=== PATIENT | female | born 1930 | race Caucasian/White ===

== ENCOUNTER 2020-10-01 14:51 | Inpatient (IN) | payer MEDICARE, BC ==
[~2020-10-01] VITALS: Ht 167.6 cm; Wt 71.7 kg
[~2020-10-01 14:51] MED LIST: CALC500T78 PO; CHOL20004 PO; DILT-32 PO; FISH1CAP16 PO; LOSA100T3 PO; LOVA20TA2 PO; TRIA1CAP2 PO; ZOLP5TAB2 PO
[2020-10-01] MEDS ORDERED: ACET-2154 PO (17:37)
[2020-10-01] MEDS ORDERED: BISA10SU12 RC (17:43)
[2020-10-01] MEDS ORDERED: ATOR40TA PO (17:43)
[2020-10-01] MEDS ORDERED: ENOX40DI SQ (17:43)
[2020-10-01] MEDS ORDERED: ZOLP5TAB2 PO (17:43)
[2020-10-01] MEDS ORDERED: MAGN400O6 PO (17:43)
[2020-10-01] MEDS ORDERED: VITA-287 PO (17:43)
[2020-10-01] MEDS ORDERED: AMLO5TAB4 PO (17:43)
[2020-10-01] MEDS ORDERED: MAG30ORA PO (17:43)
--- NOTE | 2020-10-01 19:45 | NUR ---
Patient arrived in the room 321 via gurney bed assisted by 2 EMT,s through direct admission from [facility] at 1905 with admitting DX PUBIC FRACTURE, (displaced L inferior Pubic Ramus), (R Acetabular mildly displaced ). no surgery, patient plan of care Acute rehab. Patient AAO X 4 no acute distress at room air saturating 93% VS B/P 154/75, p 78, R19, T98.3 Pain 0, bowel and bladder incontinent, belonging list done and placed in chart skin assessment done, skin intact. Admission order completed med reconcile is done by Tamia Burnett NP, and DR. Bower is aware of admission. Oriented patient to the room, safety measures and precautions in place. Call light with in reach, will continue monitor patient, All needs anticipated , call light with in reach.
[2020-10-01 20:00] VITALS: BP 154/75
[2020-10-01] MEDS ORDERED: BISACODYL 10 MG SUPP.RECT RC PRN (20:30)
[2020-10-01] MEDS ORDERED: MAG HYDROX/AL HYDROX/SIMETH 30 ML LIQUID UDC PO PRN (20:30)
[2020-10-01] MEDS ORDERED: MAGNESIUM HYDROXIDE 30 ML LIQUID UDC PO PRN (20:30)
[2020-10-01] MEDS ORDERED: ZOLPIDEM 5 MG TABLET PO PRN (20:30)
[2020-10-01] MEDS: ENOXAPARIN SODIUM 40 MG/0.4 ML DISP.SYRIN SQ SCH (22:02)
[2020-10-01] MEDS: ATORVASTATIN 40 MG TABLET PO SCH (22:03)
--- NOTE | 2020-10-01 22:10 | NUR ---
Patient AO X4 no acute distress,regular diet, offer choice of snack and fluids kept clean and dry all due medication administered no adverse reaction noted. Will continue monitoring patient. Safety precautions observed all time. call light with in reach.
[2020-10-02 04:00] VITALS: BP 152/74
--- NOTE | 2020-10-02 04:58 | NUR ---
Patient slept through out night with no c/o pain or acute distress. All needs anticipated call light with in reach. complied with all care,Will endorse accordingly to AM shift.
[2020-10-02 08:00] VITALS: BP 151/62
[2020-10-02] MEDS: AMLODIPINE 5 MG TABLET PO SCH (08:07)
[2020-10-02] MEDS: VITAMIN B COMPLEX 1 TABLET PO SCH (08:07)
[2020-10-02] MEDS: ACETAMINOPHEN 325 MG TABLET PO PRN ×2 (14:40→21:23)
[2020-10-02 16:23] VITALS: BP 149/68
[2020-10-02] MEDS: ATORVASTATIN 40 MG TABLET PO SCH (20:09)
[2020-10-02] MEDS: ENOXAPARIN SODIUM 40 MG/0.4 ML DISP.SYRIN SQ SCH (20:30)
[2020-10-02 20:41] VITALS: BP 128/56
[2020-10-03 05:32] VITALS: BP 144/62
[2020-10-03] MEDS: ACETAMINOPHEN 325 MG TABLET PO PRN (06:02)
[2020-10-03 08:00] VITALS: BP 138/65
[2020-10-03] MEDS: AMLODIPINE 5 MG TABLET PO SCH (08:01)
[2020-10-03] MEDS: VITAMIN B COMPLEX 1 TABLET PO SCH (08:01)
[2020-10-03 16:07] VITALS: BP 142/58
[2020-10-03 20:00] VITALS: BP 125/56
[2020-10-03] MEDS: ATORVASTATIN 40 MG TABLET PO SCH (21:56)
[2020-10-03] MEDS: ENOXAPARIN SODIUM 40 MG/0.4 ML DISP.SYRIN SQ SCH (21:57)
--- NOTE | 2020-10-03 22:26 | NUR ---
Received pt resting in bed Pleasant calm and relaxed, patient has concerns want to talk to her DRAvni in Am regarding her home medications she use to take. She want to discuss with her DR. for sleep aid she want to take melatonin, asked do you want to call get order? "she said she can wait until tomorrow". No acute distress noted. Denies pain/ discomfort. Due medication administered as ordered. Turned and repositioned. Both heels offloaded. Safety measures maintained. Clean and dry, Call light and personal items within reach. Will continue to monitor.
[2020-10-04 04:00] VITALS: BP 130/64
--- NOTE | 2020-10-04 06:55 | NUR ---
Patient AO X4 no acute distress, Safety precautions observed all time. call light with in reach.
[2020-10-04 07:39] VITALS: BP 133/54
[2020-10-04] MEDS: VITAMIN B COMPLEX 1 TABLET PO SCH (08:01)
[2020-10-04] MEDS: ACETAMINOPHEN 325 MG TABLET PO PRN ×2 (08:01→21:17)
[2020-10-04] MEDS: AMLODIPINE 5 MG TABLET PO SCH (08:01)
--- NOTE | 2020-10-04 12:46 | NUR ---
INDIVIDUALIZED PLAN OF CARE
[2020-10-04] MEDS: NUTRISOURCE FIBER 4 GM PACKET PO SCH (16:21)
[2020-10-04] MEDS ORDERED: HYDROCORTISONE 1% CREAM 30 GM TUBE TP PRN (17:30)
[2020-10-04] MEDS ORDERED: PRAMOXIN/MINERAL OIL/ZNIC OINT 28.3 GM TUBE RC PRN (19:15)
[2020-10-04] MEDS ORDERED: SHARK LIVER OIL/PETROLAT OINT 60 GM TUBE RC PRN (19:45)
[2020-10-04 20:00] VITALS: BP 136/56
[2020-10-04] MEDS: ATORVASTATIN 40 MG TABLET PO SCH (20:44)
[2020-10-04] MEDS: ENOXAPARIN SODIUM 40 MG/0.4 ML DISP.SYRIN SQ SCH (20:46)
[2020-10-04] MEDS: MELATONIN 3 MG TABLET PO SCH (21:12)
[2020-10-05 04:00] VITALS: BP 137/56
--- NOTE | 2020-10-05 06:17 | NUR ---
Patient alert oriented, no sob no chest pain. Patient assisted with turning side by side to anus pain. Patient kept clean dry and treatment done on anus irritation as ordered. Patient has no complain of pain at this time. cont to monitor.
[2020-10-05 08:00] VITALS: BP 122/59
[2020-10-05] MEDS: VITAMIN B COMPLEX 1 TABLET PO SCH (08:32)
[2020-10-05] MEDS: AMLODIPINE 5 MG TABLET PO SCH (08:38)
[2020-10-05] MEDS: NUTRISOURCE FIBER 4 GM PACKET PO SCH ×3 (08:41→17:34)
[2020-10-05] MEDS: OXYCODONE/APAP 5-325 MG TABLET PO PRN (13:04)
[2020-10-05 16:02] VITALS: BP 127/61
[2020-10-05 20:05] VITALS: BP 114/54
[2020-10-05] MEDS: MELATONIN 3 MG TABLET PO SCH (20:49)
[2020-10-05] MEDS: ATORVASTATIN 40 MG TABLET PO SCH (20:49)
[2020-10-05] MEDS: ENOXAPARIN SODIUM 40 MG/0.4 ML DISP.SYRIN SQ SCH (20:52)
--- NOTE | 2020-10-06 02:55 | NUR ---
AAOx4 Needs attended. VSS kept comfortable. Admitted for pelvic fracture. No surgical intervention noted. Fall precautions maintained. Patient here for pain management. Denies any pain at this time. Will monitor patient. Incontinent of bowel and bladder. Kept clean and dry. No acute distress noted.
[2020-10-06 04:35] VITALS: BP 136/56
--- NOTE | 2020-10-06 06:39 | NUR ---
End of shift notes: Quiet night. tolerated po meds well. needs attended. VSS. Kept comfortable. Will monitor patient. Incontinent of urine x 2. Kept clean and dry.
[2020-10-06 08:00] VITALS: BP 121/55
[2020-10-06] MEDS: OXYCODONE/APAP 5-325 MG TABLET PO PRN ×2 (09:00→21:22)
[2020-10-06] MEDS: VITAMIN B COMPLEX 1 TABLET PO SCH (09:01)
[2020-10-06] MEDS: AMLODIPINE 5 MG TABLET PO SCH (09:01)
[2020-10-06] MEDS: NUTRISOURCE FIBER 4 GM PACKET PO SCH ×3 (09:17→17:35)
[2020-10-06 16:00] VITALS: BP 117/46
--- NOTE | 2020-10-06 16:05 | NUR ---
INTERDISCIPLINARY TEAM CONFERENCE
[2020-10-06 20:00] VITALS: BP 131/61
[2020-10-06] MEDS: MELATONIN 3 MG TABLET PO SCH (21:19)
[2020-10-06] MEDS: ATORVASTATIN 40 MG TABLET PO SCH (21:19)
[2020-10-06] MEDS: ENOXAPARIN SODIUM 40 MG/0.4 ML DISP.SYRIN SQ SCH (21:24)
--- NOTE | 2020-10-06 22:49 | NUR ---
Received patient resting in bed, at room air saturating 95%, patient c/o pain 8 at PS 0-10,on her lower back, provide comfortable position administered due PRN pain medication provide quite and calm environment. All due medication administered as ordered. Fall precautions taken safety measured observed all time, patient clean and dry needs anticipated. Call light with in reach.
--- NOTE | 2020-10-07 04:32 | NUR ---
Patient slept through out night, PRN pain medication administered at night effective, no further c/o pain or discomfort, patient clean and dry, needs anticipated call light with in reach. Will endorse accordingly to AM shift.
[2020-10-07 05:11] VITALS: BP 128/59
--- NOTE | 2020-10-07 08:00 | NUR ---
START OF SHIFT received change of shift report, pt in bed resting, s/p fall, reports of pain 11/11, medication given as ordered, pt a/ox4, pt on room air, no signs of distress, pt ambulatory with walker with physical therapy. pt voiding via diaper, call light within reach, fall and safety precautions in place. will continue with plan of care.
[2020-10-07] MEDS: AMLODIPINE 5 MG TABLET PO SCH (08:57)
[2020-10-07] MEDS: NUTRISOURCE FIBER 4 GM PACKET PO SCH ×3 (08:57→16:45)
[2020-10-07] MEDS: OXYCODONE/APAP 5-325 MG TABLET PO PRN ×2 (08:57→16:45)
[2020-10-07] MEDS: VITAMIN B COMPLEX 1 TABLET PO SCH (08:58)
[2020-10-07 09:02] VITALS: BP 135/62
[2020-10-07] MEDS: ENSURE WITH FIBER 237 ML LIQUID (CHOCOLATE) PO SCH (12:19)
[2020-10-07 15:50] VITALS: BP 121/54
--- NOTE | 2020-10-07 18:50 | NUR ---
END OF SHIFT pt in bed resting, a/ox4, all medications given, on room air, no signs of distress, no reports of pain at this time. pot ambulatory with physical therapy and walker. pt in diaper, gluten free diet, no wheat. pt has PRN pain medication q8hr, for lower back/coccyx region. bed in low and locked position, call light within reach, all need met this shift, safety precautions in place, will endorse to oncoming nurse.
[2020-10-07 20:00] VITALS: BP 130/73
[2020-10-07] MEDS: ATORVASTATIN 40 MG TABLET PO SCH (21:04)
[2020-10-07] MEDS: MELATONIN 3 MG TABLET PO SCH (21:04)
[2020-10-07] MEDS: ENOXAPARIN SODIUM 40 MG/0.4 ML DISP.SYRIN SQ SCH (21:04)
[2020-10-08 04:36] VITALS: BP 138/61
--- NOTE | 2020-10-08 06:31 | NUR ---
Patient awake alert breathing regular and unlabored skin warm and dry to touch, All due medication administered as per MD order. Patient slept well no c/o pain or discomfort turned side to side. All needs anticipated kept call light with i n reach.
--- NOTE | 2020-10-08 07:30 | NUR ---
START OF SHIFT NOTE pt resting in bed, a/ox4, on room air, no signs of distress, pain reported 02/11, medication given as prescribed. pt ambulatory with walker, pt voiding via diaper. bed low and locked, call light within reach, safety precautions in place, will continue with plan of care.
[2020-10-08 08:00] VITALS: BP 134/53
[2020-10-08] MEDS: AMLODIPINE 5 MG TABLET PO SCH (08:25)
[2020-10-08] MEDS: VITAMIN B COMPLEX 1 TABLET PO SCH (08:25)
[2020-10-08] MEDS: NUTRISOURCE FIBER 4 GM PACKET PO SCH ×3 (08:25→17:28)
[2020-10-08] MEDS: ENSURE WITH FIBER 237 ML LIQUID (CHOCOLATE) PO SCH (08:26)
[2020-10-08] MEDS: OXYCODONE/APAP 5-325 MG TABLET PO PRN ×2 (08:37→14:47)
[2020-10-08 16:30] VITALS: BP 124/51
--- NOTE | 2020-10-08 18:38 | NUR ---
END OF SHIFT NOTE pt resting in bed, a/ox4 on room air, no pain at this time, on room air, no signs of distress noted. pt uses diaper for bowel/bladder. bed low and locked, call light within reach, all medications given, all needs met this shift. will endorse to oncoming nurse.
[2020-10-08] MEDS: ATORVASTATIN 40 MG TABLET PO SCH (20:15)
[2020-10-08] MEDS: MELATONIN 3 MG TABLET PO SCH (20:15)
[2020-10-08] MEDS: ENOXAPARIN SODIUM 40 MG/0.4 ML DISP.SYRIN SQ SCH (20:28)
[2020-10-08 20:35] VITALS: BP 106/58
--- NOTE | 2020-10-08 20:50 | NUR ---
Received pt resting in bed and watching tv. AAO x4. No acute distress noted. Denies pain/discomfort. Due meds given as ordered. Safety measures maintained. Call light and personal items within reach. Will continue to monitor.
[2020-10-09 04:56] VITALS: BP 131/55
[2020-10-09] MEDS: NUTRISOURCE FIBER 4 GM PACKET PO SCH ×3 (09:00→17:55)
[2020-10-09] MEDS: ENSURE WITH FIBER 237 ML LIQUID (CHOCOLATE) PO SCH (09:00)
[2020-10-09] MEDS: AMLODIPINE 5 MG TABLET PO SCH (09:16)
[2020-10-09] MEDS: VITAMIN B COMPLEX 1 TABLET PO SCH (09:16)
[2020-10-09] MEDS: OXYCODONE/APAP 5-325 MG TABLET PO PRN (09:21)
--- NOTE | 2020-10-09 09:38 | NUR ---
Received patient in bed, alert and oriented x 4, pleasant and cooperative upon assessment. No s/s of distress. Patient on room air with oxygen saturation of 95%. All due meds given as ordered. Will get off the unit for her therapy. Will continue to monitor.
[2020-10-09 10:35] VITALS: BP 126/53
[2020-10-09 16:46] VITALS: BP 129/52
--- NOTE | 2020-10-09 18:21 | NUR ---
Patient in bed, asleep, no s/s of distress, family came to visit. All needs met. Kept skin clean and dry. Placed call light within easy reach.
[2020-10-09 20:00] VITALS: BP 133/65
[2020-10-09] MEDS: MELATONIN 3 MG TABLET PO SCH (20:12)
[2020-10-09] MEDS: ATORVASTATIN 40 MG TABLET PO SCH (20:12)
[2020-10-09] MEDS: ENOXAPARIN SODIUM 40 MG/0.4 ML DISP.SYRIN SQ SCH (20:15)
--- NOTE | 2020-10-09 20:25 | NUR ---
Received pt resting in bed and watching tv. AAO x4. No acute distress noted. Denies pain/ discomfort. Due meds given as ordered. Safety measures maintained. Call light and personal items within reach. Will continue to monitor.
[2020-10-10 04:00] VITALS: BP 136/53
[2020-10-10 08:10] VITALS: BP 132/56
[2020-10-10] MEDS: OXYCODONE/APAP 5-325 MG TABLET PO PRN ×2 (08:38→15:21)
[2020-10-10] MEDS: VITAMIN B COMPLEX 1 TABLET PO SCH (08:39)
[2020-10-10] MEDS: AMLODIPINE 5 MG TABLET PO SCH (08:39)
[2020-10-10] MEDS: NUTRISOURCE FIBER 4 GM PACKET PO SCH ×3 (08:46→17:38)
[2020-10-10] MEDS: ENSURE WITH FIBER 237 ML LIQUID (CHOCOLATE) PO SCH (08:52)
[2020-10-10 15:56] VITALS: BP 126/57
[2020-10-10 20:23] VITALS: BP 128/50
[2020-10-10] MEDS: MELATONIN 3 MG TABLET PO SCH (20:58)
[2020-10-10] MEDS: ATORVASTATIN 40 MG TABLET PO SCH (20:58)
[2020-10-10] MEDS: ENOXAPARIN SODIUM 40 MG/0.4 ML DISP.SYRIN SQ SCH (20:59)
--- NOTE | 2020-10-10 21:20 | NUR ---
Patient AAO X 4 resting in bed no c/o pain , medication given as ordered, tolerated well on room air saturating 97%, no signs of distress, report received ambulates with walker with PT. pt voiding via diaper, call light within reach, fall and safety precautions in place. will continue with plan of care.
[2020-10-11 04:43] VITALS: BP 135/54
[2020-10-11 06:31] LABS: BASOPHILS % (AUTO) 0.5 % (0.0-2.0); EOSINOPHILS # (AUTO) 0.2 K/uL (0.0-0.7); EOSINOPHILS % (AUTO) 2.7 % (0.0-7.0); HEMATOCRIT 36.8 % (31.2-41.9); HEMOGLOBIN 12.4 g/dL (10.9-14.3); LYMPHOCYTES % (AUTO) 26.2 % (20.5-51.5); MEAN CORPUSCULAR HEMOGLOBIN 31.8 uug (24.7-32.8); MEAN CORPUSCULAR HGB CONC 34 g/dL (32.3-35.6); MEAN CORPUSCULAR VOLUME 94.4 fL (75.5-95.3); MONOCYTES # (AUTO) 0.7 K/uL (2.0-10.0); MONOCYTES % (AUTO) 8.4 % (0.0-11.0); NEUTROPHILS # (AUTO) 4.9 K/uL (1.8-8.9); NEUTROPHILS % (AUTO) 62.2 % (38.5-71.5); PLATELET COUNT (AUTO) 328 K/uL (179-408); WHITE BLOOD COUNT (AUTO) 7.8 K/uL (3.8-11.8)
[2020-10-11 07:01] LABS: THYROID STIMULATING HORMONE 2.22 mIU/mL (0.358-3.740)
--- NOTE | 2020-10-11 07:08 | NUR ---
Patient slept well all night. no acute distress or discomfort. Continue with current plan of care. will endorse accordingly to AM shift.
[2020-10-11 07:28] LABS: BILIRUBIN,TOTAL 0.2 mg/dL (0.2-1.0); MAGNESIUM 1.9 mg/dL (1.8-2.4); PHOSPHOROUS 3.9 mg/dL (2.5-4.9); TOTAL PROTEIN, SERUM 7.5 g/dL (6.4-8.2)
[2020-10-11 08:00] VITALS: BP 132/63
[2020-10-11] MEDS: OXYCODONE/APAP 5-325 MG TABLET PO PRN ×2 (08:45→20:57)
[2020-10-11] MEDS: VITAMIN B COMPLEX 1 TABLET PO SCH (08:49)
[2020-10-11] MEDS: AMLODIPINE 5 MG TABLET PO SCH (08:52)
[2020-10-11] MEDS: ENSURE WITH FIBER 237 ML LIQUID (CHOCOLATE) PO SCH (08:54)
[2020-10-11] MEDS: NUTRISOURCE FIBER 4 GM PACKET PO SCH ×3 (08:54→17:00)
[2020-10-11 16:00] VITALS: BP 116/54
--- NOTE | 2020-10-11 16:47 | NUR ---
Pt in bed resting, no acute distress, all needs met at this time. Pt denies pain/discomfort at this time. Due medications given per order, no a/r noted. Pt refused [employer] Fiber today, purpose, benefits, risks discussed, pt right to refuse respected. Pt requested to use toilet today, pt safely assisted to toilet with physical therapist. Elevated toilet seat with arm rests in place. Per pt, one void and one BM at that time. Pt seen ambulating in hallway using FWW with physical therapist, tolerated well. Call light and belongings in reach. Will continue to monitor.
--- NOTE | 2020-10-11 20:15 | NUR ---
Patient resting in bed sitting position a/ox4, on room air, no signs of distress, chronic mild pain reported refuse at this time to take any pain medication provide comfortable position. pt ambulatory with walker, pt voiding via diaper. bed low and locked, call light within reach, safety precautions in place, will continue with plan of care
[2020-10-11 20:31] VITALS: BP 130/53
[2020-10-11] MEDS: ENOXAPARIN SODIUM 40 MG/0.4 ML DISP.SYRIN SQ SCH (20:58)
[2020-10-11] MEDS: MELATONIN 3 MG TABLET PO SCH (20:58)
[2020-10-11] MEDS: ATORVASTATIN 40 MG TABLET PO SCH (20:58)
[2020-10-12 04:47] VITALS: BP 118/50
--- NOTE | 2020-10-12 07:03 | NUR ---
Patient slept well all night, no c/o pain or acute distress. all needs anticipated. Kept call light with in reach. Endorsed to am shift accordingly.
[2020-10-12 08:00] VITALS: BP 132/51
[2020-10-12] MEDS: AMLODIPINE 5 MG TABLET PO SCH (09:09)
[2020-10-12] MEDS: VITAMIN B COMPLEX 1 TABLET PO SCH (09:10)
[2020-10-12] MEDS: ENSURE WITH FIBER 237 ML LIQUID (CHOCOLATE) PO SCH (09:11)
[2020-10-12] MEDS: NUTRISOURCE FIBER 4 GM PACKET PO SCH ×3 (09:15→17:00)
[2020-10-12 14:00] VITALS: BP 97/54
[2020-10-12 20:00] VITALS: BP 133/54
[2020-10-12] MEDS: ATORVASTATIN 40 MG TABLET PO SCH (20:45)
[2020-10-12] MEDS: MELATONIN 3 MG TABLET PO SCH (20:45)
[2020-10-12] MEDS: ENOXAPARIN SODIUM 40 MG/0.4 ML DISP.SYRIN SQ SCH (20:49)
--- NOTE | 2020-10-13 01:06 | NUR ---
AAOx4 needs attended. VSS compliant with meds. Denies any pain nor any discomfort. Will monitor patient. Incontinent of urine x2 Kept clean and dry. No BM noted this shift. No acute distress noted. Fall precautions maintained. Siderails up for safety.
[2020-10-13 04:25] VITALS: BP 127/58
--- NOTE | 2020-10-13 06:25 | NUR ---
End of shift notes: Quiet night. no acute distress noted. Uneventful night. Denies any pain nor any discomfort. Will monitor patient as well. All needs attended and met.
[2020-10-13] MEDS: AMLODIPINE 5 MG TABLET PO SCH (08:11)
[2020-10-13] MEDS: VITAMIN B COMPLEX 1 TABLET PO SCH (08:11)
[2020-10-13] MEDS: ENSURE WITH FIBER 237 ML LIQUID (CHOCOLATE) PO SCH (08:18)
[2020-10-13] MEDS: NUTRISOURCE FIBER 4 GM PACKET PO SCH ×3 (08:18→16:11)
[2020-10-13 08:36] VITALS: BP 130/56
[2020-10-13] MEDS: OXYCODONE/APAP 5-325 MG TABLET PO PRN (08:48)
[2020-10-13 14:48] VITALS: BP 118/46
--- NOTE | 2020-10-13 15:15 | NUR ---
INTERDISCIPLINARY TEAM CONFERENCE
[2020-10-13] MEDS: ACETAMINOPHEN 325 MG TABLET PO PRN (16:08)
--- NOTE | 2020-10-13 17:32 | NUR ---
patient is alert, oriented x4, no changes noted, participated with PT, OT services, tolerated well, no nausea, no vomiting, no fever noted
[2020-10-13 20:00] VITALS: BP 132/63
[2020-10-13] MEDS: MELATONIN 3 MG TABLET PO SCH (20:54)
[2020-10-13] MEDS: ATORVASTATIN 40 MG TABLET PO SCH (20:54)
[2020-10-13] MEDS: ENOXAPARIN SODIUM 40 MG/0.4 ML DISP.SYRIN SQ SCH (20:57)
--- NOTE | 2020-10-13 22:41 | NUR ---
Resting in bed upon initial rounds. AAOx4. VSS. No acute distress noted. Needs attended. Fall precautions maintained. Siderails up for safety. Will monitor patient.
[2020-10-14 04:48] VITALS: BP 142/63
--- NOTE | 2020-10-14 06:54 | NUR ---
End of shift notes: Slept well most of the shift. Needs attended. VSS Denies any pain nor any discomfort. Kept comfortable. All needs attended and met.
[2020-10-14 07:38] VITALS: BP 142/56
[2020-10-14] MEDS: AMLODIPINE 5 MG TABLET PO SCH (08:28)
[2020-10-14] MEDS: VITAMIN B COMPLEX 1 TABLET PO SCH (08:28)
[2020-10-14] MEDS: NUTRISOURCE FIBER 4 GM PACKET PO SCH ×3 (08:29→17:00)
[2020-10-14] MEDS: ENSURE WITH FIBER 237 ML LIQUID (CHOCOLATE) PO SCH (08:29)
[2020-10-14 16:04] VITALS: BP 114/50
--- NOTE | 2020-10-14 18:41 | NUR ---
Patient remains alert, oriented x 4, not in any form of distress, on room air. She denies any pain or discomfort. Due medications administered and tolerated well. Assisted with her needs promptly. Patient participated with PT and OT and tolerated well. Call light and frequently used items placed within patient's reach.
[2020-10-14 20:27] VITALS: BP 116/50
[2020-10-14] MEDS: ENOXAPARIN SODIUM 40 MG/0.4 ML DISP.SYRIN SQ SCH (21:39)
[2020-10-14] MEDS: ATORVASTATIN 40 MG TABLET PO SCH (21:40)
[2020-10-14] MEDS: MELATONIN 3 MG TABLET PO SCH (21:40)
[2020-10-14] MEDS: OXYCODONE/APAP 5-325 MG TABLET PO PRN (21:41)
--- NOTE | 2020-10-14 21:45 | NUR ---
Patient alert awake X 4, At room Air saturating 97% c/o Pain moderate in groin area non pharmacological efforts done PRN pain meds administered on request of patient. All due medication administered. Fluids encouraged as tolerate. Appears adequately hydrated not in acute distress. Clean and dry, belongings with in reach. safety measures observed all time. Call light with in reach.
[2020-10-15 05:28] VITALS: BP 116/54
--- NOTE | 2020-10-15 07:25 | NUR ---
Patient remain calm relaxed slept all night no significant changes or c/o pain or discomfort reported. All needs anticipated. Call light with i n reach. Endorse to AM shit accordingly.
[2020-10-15 08:00] VITALS: BP 128/56
[2020-10-15] MEDS: ENSURE WITH FIBER 237 ML LIQUID (CHOCOLATE) PO SCH (08:18)
[2020-10-15] MEDS: AMLODIPINE 5 MG TABLET PO SCH (08:18)
[2020-10-15] MEDS: VITAMIN B COMPLEX 1 TABLET PO SCH (08:24)
[2020-10-15] MEDS: OXYCODONE/APAP 5-325 MG TABLET PO PRN (08:29)
[2020-10-15] MEDS: NUTRISOURCE FIBER 4 GM PACKET PO SCH ×3 (08:31→18:22)
--- NOTE | 2020-10-15 15:10 | NUR ---
INTERDISCIPLINARY TEAM CONFERENCE
[2020-10-15 16:00] VITALS: BP 131/48
[2020-10-15] MEDS: ACETAMINOPHEN 325 MG TABLET PO PRN (19:45)
[2020-10-15 20:25] VITALS: BP 128/51
[2020-10-15] MEDS: ATORVASTATIN 40 MG TABLET PO SCH (20:57)
[2020-10-15] MEDS: MELATONIN 3 MG TABLET PO SCH (20:57)
[2020-10-15] MEDS: ENOXAPARIN SODIUM 40 MG/0.4 ML DISP.SYRIN SQ SCH (20:58)
--- NOTE | 2020-10-16 04:25 | NUR ---
No significant changes noted, Patient alert oriented x 4 able to let her needs known to staff, no acute c/o pain. patient complied with meds and regimen, clean and dry. Slept well through out nigh. needs anticipated. Safety measures observed all time. Call light with in reach. continue with Rehab plan of care. Will endorse accordingly to AM shift.
[2020-10-16 04:41] VITALS: BP 128/52
[2020-10-16 08:00] VITALS: BP 132/51
[2020-10-16] MEDS: VITAMIN B COMPLEX 1 TABLET PO SCH (08:45)
[2020-10-16] MEDS: AMLODIPINE 5 MG TABLET PO SCH (08:45)
[2020-10-16] MEDS: ENSURE WITH FIBER 237 ML LIQUID (CHOCOLATE) PO SCH (08:46)
[2020-10-16] MEDS: NUTRISOURCE FIBER 4 GM PACKET PO SCH ×3 (08:49→17:31)
[2020-10-16 17:02] VITALS: BP 123/51
[2020-10-16] MEDS: OXYCODONE/APAP 5-325 MG TABLET PO PRN (18:25)
--- NOTE | 2020-10-16 19:15 | NUR ---
In bed, awake and oriented x 3. No complaint presented. Not in distress. Safety measures and fall prevention maintained. Continue care as planned.
[2020-10-16 19:59] VITALS: BP 131/55
[2020-10-16] MEDS: ENOXAPARIN SODIUM 40 MG/0.4 ML DISP.SYRIN SQ SCH (21:11)
[2020-10-16] MEDS: ATORVASTATIN 40 MG TABLET PO SCH (21:11)
[2020-10-16] MEDS: MELATONIN 3 MG TABLET PO SCH (21:11)
--- NOTE | 2020-10-16 21:31 | NUR ---
Patient has no BM since 10/12. Offered Dulcolax supp and MOM but both refused stating "The reason I don't have BM yet because I'm not eating."
[2020-10-17 04:55] VITALS: BP 128/59
--- NOTE | 2020-10-17 06:30 | NUR ---
Shift End Report: VSS, Slept in between care. All needs attended and met. All needs attended and met. No significant event reported all night. Continue current rehab plan of care.
[2020-10-17 07:57] VITALS: BP 118/55
[2020-10-17] MEDS: AMLODIPINE 5 MG TABLET PO SCH (08:09)
[2020-10-17] MEDS: VITAMIN B COMPLEX 1 TABLET PO SCH (08:09)
[2020-10-17] MEDS: ENSURE WITH FIBER 237 ML LIQUID (CHOCOLATE) PO SCH (08:09)
[2020-10-17] MEDS: NUTRISOURCE FIBER 4 GM PACKET PO SCH ×3 (08:13→18:38)
[2020-10-17 15:36] VITALS: BP 118/55
--- NOTE | 2020-10-17 19:15 | NUR ---
IN bed awake, watching TV. Excited about plan of discharge. Discussed with patient about her poor appetite and no BM for 5 days. BS low pitch, denies any flatus. Encouraged to take some laxatives as ordered, increased activity especially ambulation, oral liquid intake to increase peristalsis. Safety measures and fall prevention maintained. Continue care as planned.
--- NOTE | 2020-10-17 19:25 | NUR ---
Prune juice given as needed to aid relieve constipation problem.
[2020-10-17] MEDS: ATORVASTATIN 40 MG TABLET PO SCH (20:25)
[2020-10-17] MEDS: MELATONIN 3 MG TABLET PO SCH (20:26)
[2020-10-17] MEDS: ENOXAPARIN SODIUM 40 MG/0.4 ML DISP.SYRIN SQ SCH (20:29)
[2020-10-17 20:30] VITALS: BP 115/42
[2020-10-18 04:33] VITALS: BP 129/49
--- NOTE | 2020-10-18 06:01 | NUR ---
Shift End Report: VSS. No complaint presented. All needs attended and met. No significant event reported all night. Continue current rehab plan of care.
[2020-10-18 08:00] VITALS: BP 137/57
[2020-10-18 08:46] VITALS: BP 137/57
[2020-10-18] MEDS: AMLODIPINE 5 MG TABLET PO SCH (08:46)
[2020-10-18] MEDS: VITAMIN B COMPLEX 1 TABLET PO SCH (08:46)
[2020-10-18] MEDS: NUTRISOURCE FIBER 4 GM PACKET PO SCH ×2 (08:47→12:36)
[2020-10-18] MEDS: ENSURE WITH FIBER 237 ML LIQUID (CHOCOLATE) PO SCH (09:58)
--- NOTE | 2020-10-18 15:15 | NUR ---
DISCHARGE NOTE: Pt discharged home, will receive [facility] service. Pt aware and willing, A&Ox4, NAD, on room air, VSS. All needs attended to. Belongings and valuables accounted for, pt denied missing items. Discharge prescriptions and information provided to pt. Per pt, will follow up with PCP regarding PNA vaccine, already vaccinated this flu season. Pt to receive DME from [employer]. Assisted pt safely to lobby via WC at 1505. Pt picked up via private transportation with son Naldo. Discharge instructions provided to pt and son, both verbalized understanding. Addendum: 10/18/20 at 1611 by EDUARDO OLSON RN RN Pt reported 1 BM today
== END 2020-10-18 15:05 | disposition home health service (06) | DRG 560 ==
PROVIDERS: ADMIT Physical Medicine & Rehabilitation Pain Medicine; ATTEND Physical Medicine & Rehabilitation Pain Medicine
DX: S32.592D Other specified fracture of left pubis, subsequent encounter for fracture with routine healing (principal); J98.11 Atelectasis; S32.401D Unspecified fracture of right acetabulum, subsequent encounter for fracture with routine healing; E78.5 Hyperlipidemia, unspecified; I10 Essential (primary) hypertension; K44.9 Diaphragmatic hernia without obstruction or gangrene; K57.30 Diverticulosis of large intestine without perforation or abscess without bleeding; Z85.3 Personal history of malignant neoplasm of breast; Z96.642 Presence of left artificial hip joint; W18.30XD Fall on same level, unspecified, subsequent encounter; M19.90 Unspecified osteoarthritis, unspecified site; D64.9 Anemia, unspecified; Z88.5 Allergy status to narcotic agent; Z88.2 Allergy status to sulfonamides; D25.9 Leiomyoma of uterus, unspecified
CPT/HCPCS: 36415; 83735; 84100; 84443; 85025; A4663; A9150; J1650